=== PATIENT | male | born 1975 | race Caucasian/White ===

== ENCOUNTER 2017-01-29 18:11 | Emergency (ER) | payer OTHER ==
--- NOTE | 2017-01-29 18:14 | PDOC ---
Rapid Medical Evaluation Time Seen by Provider: 01/29/17 18:13 Medical Evaluation: Allergies Allergy/AdvReac Type Severity Reaction Status Date / Time shellfish derived Allergy Verified 05/10/14 19:14 01/29/17 18:13 I have performed a brief in-person evaluation of this patient. The patient presents with a chief complaint of: Exposure to chlamydia. No symptoms Pertinent physical exam findings:Unremarkable I have ordered the following: ua/urine for gonorrhea/chlamydia. Pt also requesting syphilis and HIV The patient will proceed to the ED for further evaluation. 01/29/17 18:18
[2017-01-29 18:17] VITALS: BP 108/60; PULSE 72; TEMP 98.5; BMI 30.5
[2017-01-29 18:46] LABS: URINE APPEARANCE CLEAR; URINE BILIRUBIN NEGATIVE (NEGATIVE); URINE BLOOD NEGATIVE (NEGATIVE); URINE COLOR LTYELLOW; URINE GLUCOSE (UA) NEGATIVE (NEGATIVE); URINE KETONE NEGATIVE (NEGATIVE); URINE NITRITE NEGATIVE (NEGATIVE); URINE PROTEIN NEGATIVE (NEGATIVE); URINE UROBILINOGEN NEGATIVE mg/dL (0.2-1.0)
[2017-01-29] MEDS ORDERED: AZITHROMYCIN 500 MG TABLET PO ONE (19:34)
--- NOTE | 2017-01-29 19:34 | PDOC ---
History of Present Illness - General History Source: Patient Exam Limitations: No Limitations - History of Present Illness Initial Comments: 01/29/17 19:41 The patient is a 41 year old male, who presents to the emergency department with concerns for an STD. Patient reports he had sex with one partner who reported to have had Chlamydia. Patient at this time denies any fevers or chills. Patient denies any bumps, lesions, drainage, pain or swelling around his penis or testicles. <Zack Forbes - Last Filed: 01/29/17 19:45> <Ira Roblero - Last Filed: 01/29/17 22:09> - General Chief Complaint: Pain Stated Complaint: EVALUATION Time Seen by Provider: 01/29/17 18:13 Past History <Zack Forbes - Last Filed: 01/29/17 19:45> - Past Medical History COPD: No - Immunization History Immunization Up to Date: Yes - Suicide/Smoking/Psychosocial Hx Smoking Status: No Smoking History: Never smoked Have you smoked in the past 12 months: No Number of Cigarettes Smoked Daily: 0 Information on smoking cessation initiated: No Hx Alcohol Use: Yes (once in awhile) Drug/Substance Use Hx: No Substance Use Type: None <Ira Roblero - Last Filed: 01/29/17 22:09> - Past Medical History Allergies/Adverse Reactions: Allergies Allergy/AdvReac Type Severity Reaction Status Date / Time shellfish derived Allergy Verified 01/29/17 18:13 Home Medications: Ambulatory Orders No Home Medications 0 dose .ROUTE UTDICT 12/29/12 Review of Systems - Review of Systems Able to Perform ROS?: Yes Comments:: 01/29/17 19:42 CONSTITUTIONAL: Absent: fever, no chills, no fatigue GENITOURINARY: Absent: bumps, lesions, testicular pain , testicular swelling. penile drainage SKIN: Absent: rash Is the patient limited [place] proficient: No <Zack Forbes - Last Filed: 01/29/17 19:45> *Physical Exam - Vital Signs Last Vital Signs Temp Pulse Resp BP Pulse Ox 98.5 F 72 18 108/60 100 01/29/17 18:14 01/29/17 18:14 01/29/17 18:14 01/29/17 18:14 01/29/17 18:14 - Physical Exam Comments: 01/29/17 19:43 GENERAL: Well-appearing, well-nourished. No apparent distress. GENITOURINARY: Normal exam SKIN: Warm, dry. No rash <Zack Forbes - Last Filed: 01/29/17 19:45> - Vital Signs Last Vital Signs Temp Pulse Resp BP Pulse Ox 98.5 F 72 18 108/60 100 01/29/17 18:14 01/29/17 18:14 01/29/17 18:14 01/29/17 18:14 01/29/17 18:14 <Ira Roblero - Last Filed: 01/29/17 22:09> ED Treatment Course - ADDITIONAL ORDERS Additional order review: Laboratory Results 01/29/17 18:20 Urine Color Ltyellow Urine Appearance Clear Urine pH 5.0 Ur Specific [place] 1.020 Urine Protein Negative Urine Glucose (UA) Negative Urine Ketones Negative Urine Blood Negative Urine Nitrite Negative Urine Bilirubin Negative Urine Urobilinogen Negative <Zack Forbes - Last Filed: 01/29/17 19:45> - ADDITIONAL ORDERS Additional order review: Laboratory Results 01/29/17 18:20 Urine Color Ltyellow Urine Appearance Clear Urine pH 5.0 Ur Specific [place] 1.020 Urine Protein Negative Urine Glucose (UA) Negative Urine Ketones Negative Urine Blood Negative Urine Nitrite Negative Urine Bilirubin Negative Urine Urobilinogen Negative <Ira Roblero - Last Filed: 01/29/17 22:09> *DC/Admit/Observation/Transfer - Attestations Scribe Attestion: 01/29/17 19:43 Documentation prepared by Zack Forbes, acting as medical charge entry specialist for KAYLEE Rangel <Zack Forbes - Last Filed: 01/29/17 19:45> - Discharge Dispostion Admit: No <Ira Roblero - Last Filed: 01/29/17 22:09> Diagnosis at time of Disposition: Exposure to STD - Discharge Dispostion Disposition: HOME Condition at time of disposition: Good - Referrals Referrals: Hailee Galindo MD [Primary Care Provider] - - Patient Instructions Printed Discharge Instructions: Facts About Sexually Transmitted Infections Additional Instructions: 01/29/17 1. As discussed, a screening test for the HIV virus was performed today. Your HIV test is Negative (normal). 2. As discussed, if you engaged in high risk-behavior in the three (3) months prior to this test, you could still potentially be at risk and you will need to be re-tested. 3. As discussed, avoid any high risk behavior (such as unprotected sex or needle-sharing) in the future to minimize the chances of rush HIV. You were prophylactically treated for gonorrhea and chlamydia today. Your results for gonorrhea, chlamydia and syphylis take a few days to come back. You may call for your results in 2-3 days. Return to the ED if you have fevers, chills, cough, testicular pain, or any changes in your symptoms - Post Discharge Activity
[2017-01-29] MEDS ORDERED: AZITHROMYCIN 500 MG TABLET ONE (19:44)
[2017-01-29 22:06] LABS: HIV 1 & 2 AB NEGATIVE; HIV 1 AGp24 NEGATIVE
[2017-01-29 22:44] LABS: URINE LEUK ESTERASE Negative (NEGATIVE)
== END 2017-01-29 22:13 | disposition home or self-care (01) ==
LOC: JERFT 18:11
DX: Z11.3 Encounter for screening for infections with a predominantly sexual mode of transmission (principal)
CPT/HCPCS: 36415; 81003; 86593; 87086; 87389; 87491; 87591; 99281-25

== ENCOUNTER 2023-05-03 10:32 | Day surgery (SDC) | payer OTHER ==
[2023-04-26 14:50] VITALS: BMI 27.8
[2023-05-03 10:52] VITALS: RESP 16
[2023-05-03 14:11] VITALS: TEMP 98
[2023-05-03 14:20] VITALS: BP 114/70; PULSE 68
== END 2023-05-03 13:45 | disposition home or self-care (01) ==
LOC: FASU-ENDO 10:32
PROVIDERS: ATTEND Internal Medicine Gastroenterology
PROC: 0DBK8ZX Excision of Ascending Colon, Via Natural or Artificial Opening Endoscopic, Diagnostic (ICD-10-PCS; principal; 2023-05-03 12:11)
DX: Z12.11 Encounter for screening for malignant neoplasm of colon (principal); D12.2 Benign neoplasm of ascending colon; K64.1 Second degree hemorrhoids; K64.8 Other hemorrhoids
CPT/HCPCS: 88305-TC